=== PATIENT | female | born 1970 | race Two or more races ===

== ENCOUNTER 2019-07-28 14:15 | Emergency (ER) | payer OTHER ==
[~2019-07-28] VITALS: Ht 165.1 cm; Wt 81.6 kg
[2019-07-28 17:55] VITALS: BP 153/54
== END 2019-07-28 14:18 | disposition home or self-care (01) ==
LOC: ER 14:15
DX: S09.90XA Unspecified injury of head, initial encounter (principal); W01.198A Fall on same level from slipping, tripping and stumbling with subsequent striking against other object, initial encounter; Y93.89 Activity, other specified; Y99.8 Other external cause status; Y92.89 Other specified places as the place of occurrence of the external cause
CPT/HCPCS: 70450; 72125; 73562

== ENCOUNTER 2020-04-17 16:33 | Inpatient (IN) | payer MEDICAID, OTHER ==
[~2020-04-17] VITALS: Ht 162.6 cm; Wt 85.3 kg
[2020-04-17] MEDS ORDERED: AZITHROMYCIN 500MG/ 250ML 250 ML IV ONE (17:15)
[2020-04-17] MEDS ORDERED: SODIUM CHLORIDE 0.9% 1,000 ML IV ONE (17:15)
[2020-04-17 17:29] LABS: Basophils # (auto) 0 10 ^3/uL (0-0.2); Basophils % (auto) 0.4 % (0.0-2.0); Eosinophils # (auto) 0.2 10 ^3/uL (0-0.8); Eosinophils % (auto) 3.1 % (0.0-7.0); Hematocrit 40.5 % (36.0-46.0); Hemoglobin 14.1 g/dL (12.2-16.2); Lymphocytes # (auto) 2.2 10 ^3/uL (0.4-5.4); Lymphocytes % (auto) 38.3 % (10.0-50.0); Mean Corpuscular Hemoglobin 29.2 pg (28.0-32.0); Mean Corpuscular Hgb Conc. 34.8 g/dL (32.0-36.0); Mean Corpuscular Volume 83.8 fL (80.0-100.0); Monocytes # (auto) 0.5 10 ^3/uL (0-1.3); Monocytes % (auto) 8.1 % (0.0-12.0); Neutrophils # (auto) 2.8 10 ^3/uL (1.6-8.6); Neutrophils % (auto) 50.1 % (37.0-80.0); Nucleated Red Blood Cells % 0.2 %; Platelet Count (auto) 226 10^3/uL (140-450); Red Blood Cells 4.84 10^6/uL (4.0-5.20); White Blood Cell 5.7 10^3/uL (4.4-10.8)
[2020-04-17 17:42] LABS: Albumin 3.7 g/dL (3.4-5.0); Anion Gap 6 (5-15); Blood Urea Nitrogen 18 mg/dL (7-18); Calcium 9.6 mg/dL (8.5-10.1); Carbon Dioxide 29 mmol/L (21-32); Chloride 102 mmol/L (98-107); Glucose 226 mg/dL (74-106); Magnesium 2.3 mg/dL (1.6-2.6); Potassium 3.3 mmol/L (3.5-5.1); Sodium 137 mmol/L (136-145)
[2020-04-17 17:47] LABS: Alanine Aminotransferase 30 U/L (13-56); Alkaline Phosphatase 112 U/L (45-117); Aspartate Aminotransferase 27 U/L (15-37); BUN/Creatinine Ratio 22.5; Bilirubin, Total 0.2 mg/dL (0.2-1.0); GFR African American 98 mL/min; GFR Non-African American 81 mL/min; Lactate Dehydrogenase 217 U/L (84-246); Total Protein 7.5 g/dL (6.4-8.2)
[2020-04-17] MEDS ORDERED: ACETAMINOPHEN 325 MG TAB PO ONE (18:00)
[2020-04-17] MEDS ORDERED: NITROGLYCERIN 0.4 MG SL TAB SL PRN (18:30)
[2020-04-17] MEDS ORDERED: MORPHINE SULF INJ 2 MG/ML SYRINGE 1ML IV PRN (18:30)
[2020-04-17] MEDS ORDERED: SODIUM CHLORIDE 0.9% 1,000 ML IV SCH (19:05)
[2020-04-17] MEDS ORDERED: ACETAMINOPHEN 500 MG TAB PO PRN (19:15)
[2020-04-17] MEDS ORDERED: POTASSIUM CHL 20MEQ/100ML 100 ML IV ONE (19:30)
[2020-04-17] MEDS ORDERED: FUROSEMIDE 20 MG/2 ML VIAL IV ONE (19:30)
[2020-04-17 20:00] VITALS: BP 125/76
[2020-04-17 20:35] VITALS: BP 125/76
[2020-04-17] MEDS ORDERED: DEXTROSE (50%) 50ML SYRG IV PRN (22:00)
[2020-04-17] MEDS ORDERED: ALBUTEROL SULF HFA 90MCG INH 200DOSE IN SCH (22:00)
[2020-04-17] MEDS ORDERED: IPRATROPIUM BROM 0.5 MG/2.5ML INH SOL NEB PRN (22:00)
[2020-04-17] MEDS: ACCU-CHEK COMFORT CURVE STRIP VI SCH (22:00)
[2020-04-17] MEDS: DOXYCYCLINE 100 MG TAB/CAP PO SCH (23:04)
[2020-04-17] MEDS: InsuLIN REG 1unit/0.01ml Soln (100units/ml) SC SCH (23:30)
[2020-04-18] VITALS: BP 118/78
[2020-04-18] MEDS ORDERED: METF-370 PO (02:46)
[2020-04-18] MEDS ORDERED: LOSA-39 PO (02:49)
[2020-04-18] MEDS ORDERED: HYDR25TA4 PO (02:49)
[2020-04-18] MEDS ORDERED: SIMV-8 PO (02:49)
[2020-04-18 04:00] VITALS: BP 127/79
[2020-04-18] MEDS ORDERED: FUROSEMIDE 20 MG/2 ML VIAL IV SCH (06:00)
[2020-04-18] MEDS: ACCU-CHEK COMFORT CURVE STRIP VI SCH ×2 (06:32→11:40)
[2020-04-18] MEDS: InsuLIN REG 1unit/0.01ml Soln (100units/ml) SC SCH ×2 (06:34→11:40)
[2020-04-18 07:09] LABS: Basophils # (auto) 0 10 ^3/uL (0-0.2); Basophils % (auto) 0.4 % (0.0-2.0); Eosinophils # (auto) 0.2 10 ^3/uL (0-0.8); Eosinophils % (auto) 4.5 % (0.0-7.0); Hematocrit 37.9 % (36.0-46.0); Hemoglobin 12.6 g/dL (12.2-16.2); Lymphocytes # (auto) 2.2 10 ^3/uL (0.4-5.4); Mean Corpuscular Hemoglobin 27.7 pg (28.0-32.0); Mean Corpuscular Hgb Conc. 33.3 g/dL (32.0-36.0); Mean Corpuscular Volume 83.1 fL (80.0-100.0); Monocytes # (auto) 0.4 10 ^3/uL (0-1.3); Monocytes % (auto) 7.9 % (0.0-12.0); Neutrophils # (auto) 2.7 10 ^3/uL (1.6-8.6); Neutrophils % (auto) 48.2 % (37.0-80.0); Nucleated Red Blood Cells % 0.2 %; Platelet Count (auto) 218 10^3/uL (140-450); Red Blood Cells 4.56 10^6/uL (4.0-5.20); Red Cell Distribution Width 17.1 % (11.8-14.3); White Blood Cell 5.6 10^3/uL (4.4-10.8)
[2020-04-18 07:22] LABS: Urine Bacteria FEW /hpf (None Seen); Urine Blood 1+ /uL (Negative); Urine Specific Gravity 1.011 (1.001-1.035); Urine WBC 1 /hpf (0 - 5)
[2020-04-18 07:33] LABS: Albumin 3.2 g/dL (3.4-5.0); Anion Gap 5 (5-15); Blood Urea Nitrogen 14 mg/dL (7-18); Calcium 8.6 mg/dL (8.5-10.1); Carbon Dioxide 28 mmol/L (21-32); Chloride 104 mmol/L (98-107); Glucose 175 mg/dL (74-106); Magnesium 1.9 mg/dL (1.6-2.6); Potassium 3.2 mmol/L (3.5-5.1); Sodium 137 mmol/L (136-145)
[2020-04-18 07:39] LABS: Alanine Aminotransferase 32 U/L (13-56); Alkaline Phosphatase 93 U/L (45-117); Aspartate Aminotransferase 36 U/L (15-37); BUN/Creatinine Ratio 23.3; Bilirubin, Total 0.4 mg/dL (0.2-1.0); Cholesterol 181 mg/dL (< 200); GFR African American 137 mL/min; GFR Non-African American 113 mL/min; HDL Cholesterol 42 mg/dL (40-59); LDL Cholesterol 117 mg/dL (< 100); Lactate Dehydrogenase 173 U/L (84-246); Phosphorus 2.6 mg/dL (2.5-4.90); Total Protein 6.8 g/dL (6.4-8.2); Triglycerides 219 mg/dL (< 150); Uric Acid 4.3 mg/dL (2.6-6.0)
[2020-04-18 08:00] VITALS: BP 150/92
[2020-04-18] MEDS ORDERED: POTASSIUM CHL 20 Meq TABLET PO SCH (10:00)
[2020-04-18] MEDS ORDERED: CHOLECALCIFEROL (VITD3) 1,000IU=25mCg TAB PO SCH (10:00)
[2020-04-18] MEDS ORDERED: LISINOPRIL 5 MG TAB PO SCH (10:00)
[2020-04-18] MEDS ORDERED: ASCORBIC ACID 1,000 MG TAB PO SCH (10:00)
[2020-04-18] MEDS ORDERED: ENOXAPARIN SOD 40 MG/0.4 ML SYRINGE SC SCH (10:00)
[2020-04-18] MEDS ORDERED: ZINC SULFATE 220mg CAP or TAB PO SCH (10:00)
[2020-04-18] MEDS: DOXYCYCLINE 100 MG TAB/CAP PO SCH (10:01)
[2020-04-18 13:07] VITALS: BP 126/80
[2020-04-18] MEDS ORDERED: AZIT500T66 PO (14:02)
[2020-04-18] MEDS ORDERED: POTA-220 PO (14:02)
[2020-04-18] MEDS ORDERED: ASCO500T11 PO (14:02)
[2020-04-18] MEDS ORDERED: DOX100T PO (14:02)
[2020-04-18] MEDS ORDERED: MULTTAB61 PO ×2 (14:02→14:05)
[2020-04-18] MEDS ORDERED: CHOL20007 PO (14:02)
[2020-04-18 14:35] VITALS: BP 126/80
== END 2020-04-18 17:00 | disposition home or self-care (01) | DRG 137 ==
LOC: ER 16:33 → TELE 16:34 → TELE-EAST 20:30
PROVIDERS: ADMIT Hospitalist; ATTEND Internal Medicine
DX: U07.1 COVID-19 (principal); J12.9 Viral pneumonia, unspecified; E66.9 Obesity, unspecified; E11.65 Type 2 diabetes mellitus with hyperglycemia; E78.5 Hyperlipidemia, unspecified; E87.6 Hypokalemia; I10 Essential (primary) hypertension; Z68.32 Body mass index [BMI] 32.0-32.9, adult
CPT/HCPCS: 36415; 71045; 80053; 80061; 81001; 82728; 82962; 83036; 83605; 83615; 83735; 83880; 84100; 84443; 84484; 84550; 85025; 85379; 85652; 86141; 87040; 87070; 87804; 87880; 93005; G0378; J1815; J3480

== ENCOUNTER 2020-05-24 08:50 | Emergency (ER) | payer MEDICAID ==
[~2020-05-24] VITALS: Ht 172.7 cm; Wt 81.6 kg
[~2020-05-24 08:50] MED LIST: ASCO500T11 PO; AZIT500T66 PO; CHOL20007 PO; DOX100T PO; HYDR25TA4 PO; LOSA-39 PO; METF-370 PO; MULTTAB61 PO; POTA-220 PO; SIMV-8 PO
[2020-05-24 13:51] VITALS: BP 131/71
== END 2020-05-24 15:33 | disposition home or self-care (01) ==
LOC: ER 08:50 → EDBD 08:50 → ER 15:33
DX: S13.9XXA Sprain of joints and ligaments of unspecified parts of neck, initial encounter (principal); M79.651 Pain in right thigh; E78.5 Hyperlipidemia, unspecified; I10 Essential (primary) hypertension; W18.00XA Striking against unspecified object with subsequent fall, initial encounter; Y93.02 Activity, running; Y92.89 Other specified places as the place of occurrence of the external cause; Y99.8 Other external cause status
CPT/HCPCS: 70450; 72125; 72192

== ENCOUNTER 2020-11-27 19:27 | Inpatient (IN) | payer MEDICAID ==
[~2020-11-27] VITALS: Ht 157.5 cm; Wt 81.6 kg
[~2020-11-27 19:27] MED LIST changes: +MULT-1018 PO; -MULTTAB61 PO
[2020-11-27] MEDS ORDERED: InsuLIN REG 1unit/0.01ml Soln (100units/ml) IV ONE (21:15)
[2020-11-27] MEDS ORDERED: SODIUM CHLORIDE 0.9% 1,000 ML IV ONE (21:15)
[2020-11-27] MEDS ORDERED: cefTRIAXone 1GM/50ML D5W 50 ML IV ONE (22:30)
[2020-11-27] MEDS ORDERED: KETOROLAC TROMETH 30 MG/ML 1ML VIAL IV ONE (22:30)
[2020-11-27 22:34] LABS: Basophils # (auto) 0 10 ^3/uL (0-0.2); Basophils % (auto) 0.4 % (0.0-2.0); Eosinophils # (auto) 0.1 10 ^3/uL (0-0.8); Eosinophils % (auto) 1.5 % (0.0-7.0); Hematocrit 37.3 % (36.0-46.0); Lymphocytes # (auto) 1.8 10 ^3/uL (0.4-5.4); Lymphocytes % (auto) 20.4 % (10.0-50.0); Mean Corpuscular Hemoglobin 29.2 pg (28.0-32.0); Mean Corpuscular Hgb Conc. 34.8 g/dL (32.0-36.0); Mean Corpuscular Volume 83.8 fL (80.0-100.0); Monocytes # (auto) 0.5 10 ^3/uL (0-1.3); Monocytes % (auto) 5.9 % (0.0-12.0); Neutrophils # (auto) 6.2 10 ^3/uL (1.6-8.6); Neutrophils % (auto) 71.8 % (37.0-80.0); Platelet Count (auto) 282 10^3/uL (140-450); Red Blood Cells 4.45 10^6/uL (4.0-5.20); Red Cell Distribution Width 14.3 % (11.8-14.3); White Blood Cell 8.7 10^3/uL (4.4-10.8)
[2020-11-27 22:57] LABS: Albumin 3.6 g/dL (3.4-5.0); Calcium 10.1 mg/dL (8.5-10.1); Potassium 3.1 mmol/L (3.5-5.1)
[2020-11-27 23:00] LABS: INR 0.91 (0.9-1.15)
[2020-11-27 23:03] LABS: Lactic Acid w/Reflex 2.4 mmol/L (0.4-2.0)
[2020-11-27 23:04] LABS: BUN/Creatinine Ratio 19.7; Bilirubin, Total 0.2 mg/dL (0.2-1.0); CRP High Sensitivity 8.94 mg/dL (< 0.3)
[2020-11-27] MEDS ORDERED: POTASSIUM EFFERVESENT TAB 25 MEQ PO ONE (23:30)
[2020-11-28] MEDS ORDERED: DEXTROSE (50%) 50ML SYRG IV PRN (02:45)
[2020-11-28] MEDS ORDERED: ACETAMINOPHEN 325 MG TAB PO PRN (02:45)
[2020-11-28] MEDS ORDERED: ONDANSETRON HCL 4 MG/2 ML VIAL IV PRN (02:45)
[2020-11-28] MEDS ORDERED: SODIUM CHLORIDE 0.9% 1,000 ML IV SCH ×2 (02:45→10:30)
[2020-11-28] MEDS ORDERED: HYDROcodone-ACET 5/325MG TAB PO PRN (02:45)
[2020-11-28] MEDS ORDERED: TEMAZEPAM 15 MG CAP PO PRN (02:45)
[2020-11-28] MEDS: CLINDAMYCIN 600MG IV 50 ML IV SCH ×2 (05:37→14:24)
[2020-11-28] MEDS ORDERED: cefTRIAXone 1GM/50ML D5W 50 ML IV SCH (09:00)
[2020-11-28] MEDS ORDERED: LOSARTAN POTASSIUM 50 MG TAB PO SCH (10:00)
[2020-11-28] MEDS ORDERED: FAMOTIDINE 20 MG TAB PO SCH (10:00)
[2020-11-28] MEDS: InsuLIN REG 1unit/0.01ml Soln (100units/ml) SC SCH ×3 (10:03→18:11)
[2020-11-28] MEDS: ACCU-CHEK COMFORT CURVE STRIP VI SCH ×3 (10:03→17:14)
[2020-11-28 12:00] VITALS: BP 135/80
== END 2020-11-28 18:44 | disposition left against medical advice (07) | DRG 383 ==
LOC: ER 19:27 → OVERFLOW 19:28
PROVIDERS: ADMIT Nurse Practitioner; ATTEND Internal Medicine
DX: L03.115 Cellulitis of right lower limb (principal); R65.10 Systemic inflammatory response syndrome (SIRS) of non-infectious origin without acute organ dysfunction; E11.65 Type 2 diabetes mellitus with hyperglycemia; M86.9 Osteomyelitis, unspecified; R79.89 Other specified abnormal findings of blood chemistry; Z20.828 Contact with and (suspected) exposure to other viral communicable diseases; E87.6 Hypokalemia; M65.9 Synovitis and tenosynovitis, unspecified; E66.9 Obesity, unspecified; I10 Essential (primary) hypertension; E78.5 Hyperlipidemia, unspecified; L02.415 Cutaneous abscess of right lower limb; Z53.29 Procedure and treatment not carried out because of patient's decision for other reasons; Z68.32 Body mass index [BMI] 32.0-32.9, adult; Z83.3 Family history of diabetes mellitus
CPT/HCPCS: 36415; 73700; 73721; 80053; 82962; 83605; 85025; 85610; 85652; 86141; 87040; 87426; 96360; 96361; G0378; J0696; J1815; J1885; J2405; J3490